=== PATIENT | male | born 1950 | race Two or more races ===

== ENCOUNTER 2019-10-14 13:09 | Outpatient (CLI) | payer MEDICARE ==
[2019-10-14 13:37] LABS: CALCIUM, SERUM 9.1 mg/dL (8.5-10.1); CREATININE 1.5 mg/dL (0.6-1.3); POTASSIUM 5.2 mmol/L (3.5-5.1)
== END 2019-10-14 23:59 | disposition home or self-care (01) ==
LOC: LAB 13:09
PROVIDERS: ATTEND Internal Medicine
DX: N18.9 Chronic kidney disease, unspecified (principal)
CPT/HCPCS: 36415; 80048-TC

== ENCOUNTER 2019-10-20 11:28 | Outpatient (CLI) | payer MEDICARE, OTHER | END 2019-10-20 23:59 | disposition home or self-care (01) | LOC: US 11:28 | PROVIDERS: ATTEND Physician Assistant | DX: N40.0 Benign prostatic hyperplasia without lower urinary tract symptoms (principal); N18.9 Chronic kidney disease, unspecified | CPT/HCPCS: 76770-TC ==

== ENCOUNTER 2024-05-04 13:21 | Emergency (ER) | payer OTHER, MEDICARE ==
[~2024-05-04] VITALS: Ht 162.6 cm; Wt 74.4 kg
[2024-05-04 20:57] VITALS: BP 125/70; TEMP 98.6; O2SAT 98
== END 2024-05-04 16:55 | disposition home or self-care (01) ==
LOC: ER 13:43
DX: R07.1 Chest pain on breathing (principal); I12.0 Hypertensive chronic kidney disease with stage 5 chronic kidney disease or end stage renal disease; E11.22 Type 2 diabetes mellitus with diabetic chronic kidney disease; N18.6 End stage renal disease; V43.62XA Car passenger injured in collision with other type car in traffic accident, initial encounter; Y93.89 Activity, other specified; Y92.488 Other paved roadways as the place of occurrence of the external cause; Y99.8 Other external cause status
CPT/HCPCS: 71045-TC; 72170-TC